=== PATIENT | male | born 1985 | race Caucasian/White ===

== ENCOUNTER 2022-12-09 14:08 | Emergency (ER) | payer OTHER ==
[2022-12-09] MEDS ORDERED: Sodium Chloride 0.9% 10 ML Syringe FLUSH PRN (17:53)
[2022-12-09] MEDS ORDERED: Sodium Chloride 0.9% 2.5 ML Syringe FLUSH PRN (17:53)
[2022-12-09] MEDS ORDERED: Sodium Chloride 0.9% 1,000 ML IV ONE (17:55)
[2022-12-09] MEDS ORDERED: Famotidine 20 MG/2 ML SDV IVPUSH ONE (17:55)
[2022-12-09 19:38] LABS: POTASSIUM,K 3.9 mmol/L (3.5-5.1)
[2022-12-09] MEDS ORDERED: Iopamidol 755 MG/ML 500 ML Multipack Bottle IVPUSH STA (19:56)
[2022-12-09] MEDS ORDERED: Alum Hydro/Mag Hydro/Simeth XS 15 ML, Metoclopramide 5 MG, Lidocaine 2% 5 ML PO ONE ×3 (20:55)
== END 2022-12-09 21:14 | disposition home or self-care (01) ==
LOC: MW.ED 14:08
DX: K29.70 Gastritis, unspecified, without bleeding (principal); Z88.0 Allergy status to penicillin
CPT/HCPCS: 36415; 74177; 80053; 81003; 83690; 85025; 96361; 96374; 99284; A9270; J3490; J7030; Q9967